=== PATIENT | female | born 1985 | race American Indian/Alaskan Native ===

== ENCOUNTER 2024-05-23 06:15 | Emergency (ER) | payer MEDICAID ==
[~2024-05-23] VITALS: Ht 162.6 cm; Wt 52.0 kg
[~2024-05-23 06:15] MED LIST: ACET-2708 MT; AMOX1TAB16 MT
[2024-05-23 06:21] VITALS: TEMP 36.8; O2SAT 99
[2024-05-23 07:36] LABS: CLARITY URINE CLOUDY (CLEAR); COLOR URINE YELLOW (YELLOW); GLUCOSE URINE NEGATIVE (NEGATIVE); KETONES URINE NEGATIVE (NEGATIVE); LEUKOCYTE ESTERASE URINE 1+ (NEGATIVE); NITRITE URINE NEGATIVE (NEGATIVE); OCCULT BLOOD URINE NEGATIVE (NEGATIVE); PH URINE 5.5 (4.5-8.0); PROTEIN URINE NEGATIVE (NEGATIVE); SPECIFIC GRAVITY URINE 1.022 (1.005-1.030); UROBILINOGEN URINE 0.2 E.U./dL (0.2-1.0)
[2024-05-23] MEDS ORDERED: NITR100C MT (07:51)
[2024-05-23] MEDS ORDERED: LIDO700A15 TP (08:01)
[2024-05-23] MEDS: KETOROLAC 30MG/ML VIAL IM ONE (08:20)
[2024-05-23 08:25] LABS: MUCUS URINE 3+ /lpf (< = 2+); SQUAMOUS EPITHELIAL CELL URINE 2+ /lpf (RARE/1+)
[2024-05-23 08:26] LABS: BACTERIA URINE 2+; RBC URINE NONE SEEN /hpf (0-2)
[2024-05-23 08:27] LABS: YEAST URINE 1+
[2024-05-23 08:31] VITALS: BP 136/83; PULSE 70; RESP 18; O2SAT 99
== END 2024-05-23 08:34 | disposition home or self-care (01) ==
LOC: ER 06:15
DX: M54.50 Low back pain, unspecified (principal); Z79.899 Other long term (current) drug therapy
CPT/HCPCS: 99283; 81003; 81025; 96372; J1885